=== PATIENT | female | born 1945 | race Two or more races ===

== ENCOUNTER 2016-11-07 12:24 | Day surgery (SDC) | payer OTHER ==
[~2016-11-07] VITALS: Ht 152.4 cm; Wt 55.9 kg
[2016-11-07 12:56] VITALS: Ht 152.4 cm; Wt 55.9 kg
[2016-11-07] MEDS ORDERED: PROPOFOL 20 ML ONE (13:04)
[2016-11-07] MEDS ORDERED: VITAMIN D (13:06)
[2016-11-07] MEDS ORDERED: PANTOPRAZOLE (13:06)
[2016-11-07] MEDS ORDERED: LEVOTHYROXINE (13:06)
[2016-11-07] MEDS ORDERED: EYE DROPS (13:06)
[2016-11-07] MEDS ORDERED: CRESTOR (13:06)
[2016-11-07 13:37] VITALS: BP 118/64; PULSE 56; RESP 16
[2016-11-07 14:25] VITALS: BP 149/69; PULSE 60
--- NOTE | 2016-11-07 18:55 | GILP ---
DATE OF PROCEDURE: 11/07/2016 NAME OF PROCEDURES: Esophagogastroduodenoscopy and biopsy. SURGEON: Tomeka Smith MD PREOPERATIVE DIAGNOSIS: Abdominal pain. POSTOPERATIVE DIAGNOSES: 1. Hiatal hernia. 2. Gastroesophageal reflux disease. 3. Gastritis with erosions. 4. Gastric mucosal biopsies were taken for Helicobacter pylori test. INDICATION FOR THE PROCEDURE: Ms. Susi Ramirez is a 71-year-old female patient who had upper abd ominal pain, not responding to therapy. The patient was scheduled for endoscopic examination for fu rther evaluation. The procedure and possible complications were well explained to the patient. The patient understood and consented to the procedure. DESCRIPTION OF PROCEDURE: Under the influence of anesthesia, the gastroscope was carefully introduc ed into the esophagus and under direct vision, it was advanced to the stomach and through the pyloru s into the duodenal bulb and descending duodenum. FINDINGS: ESOPHAGUS: The patient had hiatal hernia and gastroesophageal reflux disease. STOMACH: She had gastritis with erosions. Gastric mucosal biopsies were taken for H. pylori test. DUODENUM: The patient was status post surgery for perforated duodenal ulcer. DUODENUM: Patient had duodenitis with erosions. She tolerated the procedure very well and there was no complication from the procedure. At the end of the procedure, she was awake with stable vital signs and she was discharged home to the care of h er family. IMPRESSION: 1. Hiatal hernia. 2. Gastroesophageal reflux disease. 3. Gastritis with erosions. 4. Gastric mucosal biopsies were taken for Helicobacter pylori test. 5. Status post surgery for perforated duodenal ulcer. 6. Duodenitis with erosions. PLAN: 1. Pantoprazole 40 mg p.o. q.a.m. 2. Zantac 300 mg p.o. at bedtime. 3. Await H. pylori test report. Dictated By: TOMEKA NGUYỄN/MERCEDES Conf#: [id number] DID#: [id number]
== END 2016-11-07 14:13 | disposition home or self-care (01) ==
LOC: GIL 12:24
PROVIDERS: ATTEND Internal Medicine Gastroenterology
DX: B96.81 Helicobacter pylori [H. pylori] as the cause of diseases classified elsewhere (principal); K21.9 Gastro-esophageal reflux disease without esophagitis; K29.60 Other gastritis without bleeding; K29.80 Duodenitis without bleeding
CPT/HCPCS: 43239; 87081; Z7610